=== PATIENT | female | born 1975 | race Two or more races ===

== ENCOUNTER 2022-04-13 10:32 | Emergency (ER) | payer OTHER ==
[~2022-04-13] VITALS: Ht 152.4 cm; Wt 73.9 kg
[~2022-04-13 10:32] MED LIST: EC-NAPROXEN500 MG PO; Tylenol #3 PO; ZYRTEC10 M3 PO
[2022-04-13] MEDS ORDERED: NORFLEX100MG PO (13:16)
[2022-04-13] MEDS ORDERED: KETO10TA2 PO (13:16)
== END 2022-04-13 14:00 | disposition home or self-care (01) ==
LOC: ER 10:32
DX: M54.2 Cervicalgia (principal); Z88.8 Allergy status to other drugs, medicaments and biological substances; Z91.018 Allergy to other foods